=== PATIENT | female | born 1975 | race Caucasian/White ===

== ENCOUNTER 2025-02-24 08:06 | Day surgery (SDC) | payer OTHER ==
--- NOTE | 2025-02-19 15:35 | ELECTROCARDIOGRAPH REPORT ---
[facility] Test Date: 2025-02-19 Test Time: 15:33:40 Pat Name: DALJIT DAVIS Department: [facility]-PRE-OP Patient ID: [id number] Room: Gender: F Health Care Specialist: : 1975 Requested By: ЕКАТЕРИНА VILLEDA Order Number: [id number] Reading MD: Dr. KAILEE Martinez Measurements Intervals [place] Rate: 63 P: -3 MI: 133 QRS: 81 QRSD: 96 T: 61 QT: 406 QTc: 416 Interpretive Statements Sinus rhythm Abnormal R-wave progression, early transition Electronically Signed On 02-20-2025 13:29:[address] KAILEE Martinez Please click the below link to view image of tracing.
[2025-02-19 15:58] LABS: MEAN PLATELET VOLUME 7.4 FL (7.4-10.4); PRE OP HEMATOCRIT 39.0 % (35.0-45.0); PRE OP HEMOGLOBIN 12.9 g/dL (12.0-16.0); PRE OP PLATELET COUNT 432 X10'3 (140-440); PRE OP WHITE BLOOD COUNT 9.2 10'3 (4.8-10.8); RED CELL DISTRIBUTION WIDTH 13.4 % (11.5-14.5)
[2025-02-19 16:05] LABS: CREATININE 0.80 MG/DL (0.40-0.90); PRE OP ALT 10 U/L (30-65); PRE OP ANION GAP 6 (8-16); PRE OP AST 10 U/L (10-37); PRE OP BILIRUB, TOTAL 0.2 MG/DL (0.0-1.0); PRE OP GLUCOSE 84 MG/DL (70-104); PRE OP POTASSIUM 3.4 MMOL/L (3.4-5.1); PRE OP SODIUM 140 MMOL/L (135-145); TOTAL CARBON DIOXIDE 27.9 MMOL/L (24-32); eGFR 76 ML/MIN
[2025-02-24] VITALS (18 sets, daily range): BP systolic 113–159; BP diastolic 72–110; PULSE 64–100; RESP 8–20; TEMP 98.1; O2SAT 92–100
[~2025-02-24] VITALS: Ht 167.6 cm; Wt 72.6 kg
[2025-02-24] MEDS: ceFAZolin 2gm/dext,iso 50mL 50 ML IV ONE (05:30)
[~2025-02-24 08:06] MED LIST: PHEN1CPM4 PO; VITAMIN D PO; [UNRECOGNIZED DRUG - OTHER] PO
[2025-02-24] MEDS ORDERED: BUPIVAcaine 2.5mg/ml inj 50ml vial (contains preservative) ONE (08:44)
[2025-02-24] MEDS ORDERED: BUPIVACAINE liposomal/PF 13.3 MG/ML 10mL vial IM ONE (08:45)
[2025-02-24] MEDS ORDERED: methylene blue (5mg/ml) 50mg/10ml ampul IV ONE (08:45)
[2025-02-24] MEDS ORDERED: LIDOcaine 1% 30ml preserv. free vial ONE (08:45)
[2025-02-24] MEDS ORDERED: BUPIVAcaine/PF 2.5mg/ml (0.25%) 10ml vial ONE (08:54)
[2025-02-24] MEDS: ringers solution, lacted 1,000 ML IV SCH (08:57)
[2025-02-24] MEDS ORDERED: hydrALAZINE 20mg/ml inj. IV PRN (10:05)
[2025-02-24] MEDS ORDERED: ringers solution, lacted 1,000 ML IV SCH (10:05)
[2025-02-24] MEDS ORDERED: ondansetron/PF 4mg/2ml inj IV PRN (10:05)
[2025-02-24] MEDS ORDERED: labetalol 20mg/4ml (5mg/ml) syringe IV PRN (10:05)
[2025-02-24] MEDS ORDERED: fentaNYL/PF 50MCG/1 ML 2ML syringe IV PRN (10:05)
[2025-02-24] MEDS ORDERED: fentaNYL/PF 50MCG/1 ML 2ML syringe ONE (10:11)
[2025-02-24] MEDS ORDERED: midazolam 1 mg/ML 2ml injection ONE (10:11)
[2025-02-24] MEDS ORDERED: acetaminophen 1,000mg/100ml IV 100 ML IV ONE (10:20)
[2025-02-24] MEDS ORDERED: LIDOcaine 1%/PF 5ML 10 MG/ML VIAL ONE (10:21)
[2025-02-24] MEDS ORDERED: propofol inj 20 ML IV ONE (10:21)
[2025-02-24] MEDS ORDERED: ondansetron/PF 4mg/2ml inj ONE (10:21)
[2025-02-24] MEDS ORDERED: dexamethasone sod phosphate 4mg/ml inj. ONE (10:22)
[2025-02-24] MEDS: methylene blue (5mg/ml) 50mg/10ml ampul IV ONE (12:20)
[2025-02-24] MEDS: BUPIVAcaine/PF 2.5mg/ml (0.25%) 10ml vial IJ ONE (12:21)
[2025-02-24] MEDS: LIDOcaine 1% 30ml preserv. free vial IJ ONE (12:21)
[2025-02-24] MEDS: fentaNYL/PF 50MCG/1 ML 2ML syringe IV PRN (13:01)
--- NOTE | 2025-02-24 13:12 | OPERATIVE REPORT ---
Operative Report Providers to CC CC: ЕКАТЕРИНА VILLEDA DO ~ Date of Procedure: Feb 24, 2025 Pre-Operative Diagnosis: Right breast invasive ductal carcinoma Post-Operative Diagnosis SAME as PRE-Op Procedure Performed Right breast wire localized lumpectomy and right axillary sentinel lymph node biopsy and reading of the specimen radiograph Surgeon: Dr. Екатерина Villeda Drill Sharpener May Loaiza PA-C Anesthesiologist: Marc Pantoja Type of Anesthesia: General Findings: Right axillary sentinel lymph nodes x2 and markers detected on 2nd specimen lumpectomy Complications None-patient had a tendency to ooze and bleed hemostasis was achieved with Bovie electrocautery and Laxmi in the axilla Vistaseal in the breast cavity Prosthetics\Implants used: None Estimated Blood Loss: Less than 15 mL Specimen Removed: Right breast wire localized lumpectomy medial margin short superior long lateral double deep, right breast wire localized lumpectomy suture reddy short superior long lateral double deep, right axillary sentinel lymph node biopsy #1 count 300 And right axillary sentinel lymph node biopsy #2 count 277 Description of Procedure: Fito is a 50-year-old female who was diagnosed with right breast invasive ductal carcinoma. She had an additional workup and decided to move forward with breast conservation. She had a tracking device placed in the right breast by prior to surgery. She had the nuclear medicine injection this morning at [facility]. I marked the right breast in the preoperative holding area with my initials. She had an IV in placed, SCDs to lower extremities and antibiotics hanging by the bedside which was administered before the cut of surgery. The right breast was marked with my initials and she was also seen by the anesthesiologist. She was taken to the OR suite placed on the table in supine position with the arms extended. General anesthesia was administered with an LMA. I scanned the right breast with the pen to wish probe the signal was had about 12:00 p.m. 1 cm from the nipple but not a very strong signal. I also scanned the breast and axilla with the gamma probe and detected the hot spots for Lymphoseek. The breast was marked and the patient was prepped and draped in a sterile fashion a time-out was performed and agreed upon. I began the surgery with the right axillary sentinel lymph node biopsy I made a proposed incision with a marking pen after I injected the area with 1% lidocaine. I made the incision with a 15 blade and dissected through the deep dermal layer with the cutting on the cautery. Once I dissected into the deep fascia. Panda retractors were placed in the cavity and I dissected through the axillary fascia. And hot signal was was noted and that node was grasped posteriorly with the tonsil clamp. The node was completely excised with the LigaSure. And the counts outside of the body was 300. I found a 2nd additional lymph node that was also hot. It was excised in same fashion. It was placed outside of the body and the count was 277. Both lymph nodes were hot only. The cavity was irrigated hemostasis was achieved with Bovie electrocautery during the procedure the patient was oozy but not necessarily bleeding. After copious irrigation. I placed Laxmi in the cavity to assist with hemostasis and moved to the lumpectomy. A periareolar incision was made with a 15 blade after injecting 1% lidocaine. Once I dissected through the deep dermal layer with the cutting on the cautery Pedro retractors were placed over the incision and I dissected into the deeper space. The signal was body in guiding my dissection. It appeared to be deep to the nipple-areolar complex at 12:00 As I excised the area and maintain a signal. The tissue was completely excised and outside of the body there was not a signal. The specimen was oriented with short stitch superior long suture lateral double suture deep, and named of the specimen the lumpectomy medial margin It was placed in the specimen radiograph but there was a signal. The signal still remain just next to the tissue I therefore stabilize the tissue and excised it. That specimen 2. Was oriented with short stitch superior long suture lateral double suture deep there was a signal of the specimen. It was imaged on the specimen radiograph and the two markers were located at the lateral inferior aspect of the lumpectomy. I re-excised the lateral inferior margin and oriented suture reddy final margin. All specimen was placed in formalin. The patient had additional oozing in the cavity and from the start of surgery she had a lot of oozing. I copiously irrigated the cavity and hemostasis was achieved with Bovie electrocautery. I also sprayed Vistaseal 10 mL into the cavity. I placed a 15 [place] CHLIO drain in the lower outer quadrant. The cavity was irrigated again and hemostasis was achieved with Bovie electrocautery. Cavity was approximated with 3-0 dandre Vicryl suture. The skin was closed with 3-0 Vicryl sutures and a 4-0 Monocryl running subcuticular stitch along the Gudelia areolar incision between 10 and 2:00 a.m.. The axillary space was closed with 3-0 Vicryl suture in the deep fascia and 3-0 Vicryl suture at the skin with a 4-0 Monocryl running subcuticular stitch. 0.25% Marcaine was injected at both sites. Glue was placed on the incisions pressure dressings as well and she was Onofre wrapped in a binder was placed on the patient. She was taken to recovery in stable condition without complication. Counts repoted as correct: Yes ЕКАТЕРИНА VILLEDA DO Feb 24, 2025 13:12
[2025-02-24] MEDS: morphine 4 MG/ML inj SYRINge IV PRN (13:25)
--- NOTE | 2025-03-02 08:39 | PATHOLOGY REPORT ---
[facility] [address] [place] [address] SURGICAL PATHOLOGY REPORT CaseNumber: [id number] Surgeon:Johnna Wise M.D. CLINICAL INFORMATION CLINICAL INFORMATION: Patient with cancer in right breast. Patient did not have neoadjuvant therapy. DIAGNOSIS DIAGNOSIS: A.SENTINEL NODE, RIGHT AXILLARY #1; EXCISION - ONE LYMPH NODE, NEGATIVE FOR CARCINOMA (0/1). DIAGNOSIS: B.SENTINEL NODE, RIGHT AXILLARY #2; EXCISION - ONE LYMPH NODE, NEGATIVE FOR CARCINOMA (0/1). DIAGNOSIS: C.RIGHT BREAST, MEDIAL MARGIN; LUMPECTOMY - BENIGN BREAST TISSUE. - FIBROCYTIC CHANGES AND MICROCALCIFICATIONS. - NEGATIVE FOR CARCINOMA. DIAGNOSIS: D.RIGHT BREAST; LUMPECTOMY - INVASIVE DUCTAL CARCINOMA, IRENE GRADE III. - THE SURGICAL MARGINS ARE NEGATIVE FOR INVASIVE CARCINOMA. - DUCTAL CARCINOMA IN-SITU IS LESS THAN 1MM FROM THE INFERIOR MARGIN IN THIS SPECIMEN. - LYMPHOVASCULAR INVASION IS PRESENT. - SEE SYNOPTIC REPORT. DIAGNOSIS: E.RIGHT BREAST, INFERIOR MARGIN; RE-EXCISION - BENIGN BREAST TISSUE. - FIBROCYTIC CHANGES AND MICROCALCIFICATIONS. - NEGATIVE FOR CARCINOMA. MICROSCOPIC DESCRIPTION A. SENTINEL NODE, RIGHT AXILLARY #1 MICROSCOPIC DESCRIPTION: 3 H&E-stained slides and 1 AE1/3 cytokeratin immunostain are examined. They show multiple sections and levels of a benign lymph node. There is no evidence of metastatic carcinoma. B. SENTINEL NODE, RIGHT AXILLARY #2 MICROSCOPIC DESCRIPTION: 3 H&E-stained slides and 1 AE1/3 cytokeratin immunostain are examined. They show multiple sections and levels of a benign lymph node. There is no evidence of metastatic carcinoma. C. RIGHT BREAST, MEDIAL MARGIN MICROSCOPIC DESCRIPTION: 6 H&E-stained slides are examined 6 H&E-stained slides are examined showing multiple levels and sections of dense fibrous breast tissue. Fibrocystic and fibroadenomatous changes are present, associated with microcalcifications. I do not see evidence of invasive or in situ carcinoma. D. RIGHT BREAST MICROSCOPIC DESCRIPTION: 6 H&E-stained slides are examined. They show sections of breast involved by invasive ductal carcinoma, Irene grade 3. There is essentially no tubule formation, markedly enlarged and pleomorphic nuclei, and moderate amounts of mitotic activity. Solid high-grade ductal carcinoma in situ with single cell necrosis is present. The invasive carcinoma measures 1.2 x 1.1 cm on a slide. It is 2 mm to the closest inferior margin, and 3 mm to the closest anterior margin. Ductal carcinoma in situ is less than 1 mm from the inferior margin. Multiple foci of lymphovascular invasion are identified (on 3 blocks). The background breast tissue shows fibrocystic changes occasionally associated with microcalcifications. E. RIGHT BREAST, INFERIOR MARGIN MICROSCOPIC DESCRIPTION: 6 H&E-stained slides are examined and show multiple sections of dense breast tissue with fibrocystic and fibroadenomatoid changes. There is no evidence of invasive or in situ carcinoma. GROSS DESCRIPTION A. SENTINEL NODE, RIGHT AXILLARY #1 GROSS DESCRIPTION: Received in a container of formalin labeled with the patient's name, number, and "right axillary sentinel node #1" is a 1.5 x 1 x 1 cm lymph node candidate. The specimen is bisected and entirely submitted as A1. The time at which the specimen was removed was 1052. The time at which the specimen was placed in formalin was 1055. (meb) B. SENTINEL NODE, RIGHT AXILLARY #2 GROSS DESCRIPTION: Received in a container of formalin labeled with the patient's name, number, and "right axillary sentinel node #2" is a 2 x 1.5 x 1 cm lymph node candidate. The specimen is bisected and entirely submitted as B1. The time at which the specimen was removed was 1052. The time at which the specimen was placed in formalin was 1055. (meb) C. RIGHT BREAST, MEDIAL MARGIN GROSS DESCRIPTION: Received in a container of formalin labeled with the patient's name, number, and "medial margin right breast localized lumpectomy" is a 37 g oriented excision of fibrofatty breast tissue which measures 3.5 x 6 x 4 cm. There are sutures found marking the superior, lateral, and posterior aspects of the excision. The superior margin is marked blue, the inferior margin is marked green, the medial margin is marked orange, the lateral margin is marked yellow, the anterior margin is marked red, and the posterior margin is marked black. Sectioning fails to reveal a discrete mass lesion.Sections are submitted as follows:C1) Superior marginC2) Inferior marginC3) Medial marginC4) Lateral marginC5) Anterior marginC6) Posterior marginThe time at which the specimen was removed was 1052. The time out specimen was placed in formalin was 1055. (meb) D. RIGHT BREAST GROSS DESCRIPTION: Received in a container of formalin labeled with the patient's name, number, and "right breast localized lumpectomy with marker" is a 37 g oriented excision of fibrofatty breast tissue which measures 8.5 x 4.5 x 2.3 cm. There are sutures found marking the superior, lateral, and posterior aspects of the excision. The superior margin is marked blue, the inferior margin is marked green, the medial margin is marked orange, the lateral margin is marked yellow, the anterior margin is marked red, and the posterior margin is marked black. Sectioning reveals a 1.4 x 1.3 x 1.3 cm firm, jessica neoplasm containing foreign material (two metallic clips) which approaches the anterior and inferior margins and is 0.4 cm from the posterior margin. Sections are submitted as follows: D1) Superior marginD2) Inferior and anterior margins with tumorD3) Medial marginD4) Lateral marginD5) Anterior and inferior margins with tumorD6) Posterior, anterior, and inferior margins with tumor The time at which the specimen was removed was 1052. The time at which the specimen was placed in formalin was 1055. (meb) E. RIGHT BREAST, INFERIOR MARGIN GROSS DESCRIPTION: Received in a container of formalin labeled with the patient's name, number, and "right breast lateral inferior margin" is a 25 gram oriented excision of fibrofatty breast tissue which measures 6 x 5 x 1.5 cm. There is a suture found marking the new margin. The new margin is marked black. Sectioning fails to reveal a discrete mass lesion. [employer] Serv[employer] sections are submitted as E1-E6. The time at which the specimen was removed was 1052. The time at which the specimen was placed in formalin was 1055. (meb) SYNOPTIC REPORT SYNOPTIC TEXT: INVASIVE CARCINOMA OF THE BREAST: Resection Specimen Procedure: Excision (less than total mastectomy) Specimen Laterality: Right Tumor Histologic Type: Invasive carcinoma of no special type (ductal) Histologic Grade (Irene Histologic Score): Glandular (Acinar) / Tubular Differentiation: Score 3 Nuclear Pleomorphism: Score 3 Mitotic Rate: Score 2 Overall Grade: Grade 3 (scores of 8 or 9) Tumor Size: 14 x 13 x 13 Millimeters (mm) Tumor Focality: Single focus of invasive carcinoma Ductal Carcinoma In Situ (DCIS): Present - Negative for extensive intraductal component (EIC) Number of Blocks with DCIS: 3 Number of Blocks Examined: 6 Lymphatic and / or Vascular Invasion: Present - Extensive Treatment Effect in the Breast: No known presurgical therapy Margins Margin Status for Invasive Carcinoma: All margins negative for invasive carcinoma Distance from Invasive Carcinoma to Closest Margin: 2 mm Closest Margin(s) to Invasive Carcinoma: Inferior Margin Status for DCIS: All margins negative for DCIS Distance from DCIS to Closest Margin: Less than 1 mm in specimen D Closest Margin(s) to DCIS: Inferior Margin Comment: The final inferior margin (specimen E) is negative for invasive and in-situ carcinoma. Regional Lymph Nodes Regional Lymph Node Status: All regional lymph nodes negative for tumor Total Number of Lymph Nodes Examined (sentinel and non-sentinel): 2 Number of Wallace Nodes Examined: 2 pTNM Classification (AJCC 8th Edition) pT Category: pT1c pN Category: pN0 N Suffix: (sn) CAP [facility] 2023 Q2 Release Electronically signed by: Jt Kraft, 03/02/2025 8:09:00 AM
== END 2025-02-24 15:58 | disposition home or self-care (01) ==
LOC: PRE-OP 08:06
PROVIDERS: ATTEND Surgery
DX: D05.11 Intraductal carcinoma in situ of right breast (principal); N60.11 Diffuse cystic mastopathy of right breast; R94.31 Abnormal electrocardiogram [ECG] [EKG]; F43.10 Post-traumatic stress disorder, unspecified; F41.9 Anxiety disorder, unspecified; G43.909 Migraine, unspecified, not intractable, without status migrainosus; F32.A Depression, unspecified; Z79.899 Other long term (current) drug therapy; Z90.49 Acquired absence of other specified parts of digestive tract; Z90.79 Acquired absence of other genital organ(s); Z98.890 Other specified postprocedural states; Z88.8 Allergy status to other drugs, medicaments and biological substances
CPT/HCPCS: 19301; 36415; 38525; 76098; 80053; 82948; 85025; 93005; J0131; J0690; J1100; J2003; J2250; J2270; J2405; J2704; J3010; J3490; J7030; J7120; Q9968; Z7506; Z7508; Z7512; A4215; A4618; A6258; A6446; A6449; A7000; J0666